=== PATIENT | male | born 1990 | race African-American/Black ===

== ENCOUNTER 2016-11-03 14:40 | Emergency (ER) | payer MEDICAID ==
[~2016-11-03] VITALS: Ht 180.3 cm; Wt 81.8 kg
[2016-11-03 18:19] VITALS: BP 123/77
== END 2016-11-03 18:23 | disposition home or self-care (01) ==
LOC: EMS 14:44
DX: L73.1 Pseudofolliculitis barbae (principal); L81.9 Disorder of pigmentation, unspecified
CPT/HCPCS: 99281

== ENCOUNTER 2017-06-17 22:03 | Emergency (ER) | payer MEDICAID ==
[~2017-06-17] VITALS: Ht 182.9 cm; Wt 90.0 kg
[2017-06-17 23:07] VITALS: BP 142/70
== END 2017-06-17 23:08 | disposition home or self-care (01) ==
LOC: EMS 22:03
DX: S60.440A External constriction of right index finger, initial encounter (principal); W49.04XA Ring or other jewelry causing external constriction, initial encounter; Y93.89 Activity, other specified; Y92.89 Other specified places as the place of occurrence of the external cause; Y99.8 Other external cause status
CPT/HCPCS: 99281; 99284

== ENCOUNTER 2021-07-16 15:05 | Emergency (ER) | payer MEDICAID ==
[~2021-07-16] VITALS: Ht 182.9 cm; Wt 100.0 kg
[2021-07-16 15:13] VITALS: BP 140/92
[2021-07-16] MEDS ORDERED: BACITRACIN 0.9 GM PACKET OINTMENT TP ONE (15:45)
[2021-07-16] MEDS ORDERED: KETOROLAC TROMETHAMINE 30 MG/ML VIAL IVP ONE (15:45)
[2021-07-16] MEDS ORDERED: DOXY-354 PO (15:54)
[2021-07-16] MEDS: DOXYCYCLINE HYCLATE 100 MG TABLET PO ONE ×2 (15:55→16:04)
[2021-07-16] MEDS: IBUPROFEN 600 MG TABLET PO ONE ×2 (15:56→16:04)
== END 2021-07-16 16:29 | disposition home or self-care (01) ==
LOC: EMS 15:05
DX: L03.317 Cellulitis of buttock (principal)
CPT/HCPCS: 99284